=== PATIENT | male | born 1965 | race Two or more races ===

== ENCOUNTER 2021-11-28 02:42 | Inpatient (IN) | payer OTHER ==
[~2021-11-28] VITALS: Ht 182.9 cm; Wt 70.8 kg
[2021-11-28] VITALS (13 sets, daily range): BP systolic 104–148; BP diastolic 60–79
--- NOTE | 2021-11-28 02:50 | NUR ---
Seen and examined by ED Dr. Remy.
--- NOTE | 2021-11-28 02:53 | NUR ---
pt bib ra for c/o sob x one hour.
[2021-11-28] MEDS ORDERED: VANCOMYCIN 1G/D5W 200 ML PIGGYBACK IV ONE (03:00)
[2021-11-28] MEDS ORDERED: PIPERACILLIN SODIUM/TAZOBACTAM 3.375 G in IV DEXTROSE 5% 50 ML IV ONE (03:00)
[2021-11-28] MEDS ORDERED: AZITHROMYCIN IV 500 MG in IV DEXTROSE 5% 250 ML IV ONE (03:00)
--- NOTE | 2021-11-28 03:00 | NUR ---
Breathing treatment given c/o RT. Addendum: 11/28/21 at 0407 by RACHID Wrong time.
--- NOTE | 2021-11-28 03:02 | NUR ---
Dr. Remy and respiratory in room pt is placed on bipap. 07/04 rate 16 100 fio2.
[2021-11-28] MEDS ORDERED: IPRATROPIUM BROMIDE 0.5 MG/2.5 ML NEBU ONE ×4 (03:07→19:27)
[2021-11-28] MEDS ORDERED: ALBUTEROL SULFATE 2.5 MG/3 ML NEBU ONE ×6 (03:07→19:27)
[2021-11-28] MEDS ORDERED: PIPERACILLIN/TAZOBACTAM/D5W 50 ML IV ONE (03:17)
[2021-11-28] MEDS ORDERED: VANCOMYCIN IV 200 ML ONE (03:17)
[2021-11-28] MEDS ORDERED: AZITHROMYCIN 500 MG VIAL IV ONE (03:18)
[2021-11-28 03:43] LABS: CARBON DIOXIDE 23 mmol/L (21-32); CHLORIDE 106 mmol/L (98-107); CREATININE 3.8 mg/dL (0.6-1.3); GLUCOSE 93 mg/dL (74-106); PLATELET COUNT (AUTO) 77 K/uL (152-348); POTASSIUM 5.7 mmol/L (3.5-5.1); UREA NITROGEN, BLOOD 59 mg/dL (7-18)
[2021-11-28 03:55] LABS: HEMATOCRIT 36.3 % (36.7-47.1); MEAN CORPUSCULAR HEMOGLOBIN 29.1 uug (23.8-33.4); MEAN CORPUSCULAR VOLUME 92.4 fL (73.0-96.2)
[2021-11-28 03:59] LABS: ALANINE AMINOTRANSFERASE 18 U/L (16-63); ALKALINE PHOSPHATASE 47 U/L (50-136); ASPARTATE AMINOTRANSFERASE 20 U/L (15-37); BILIRUBIN,DIRECT 0.2 mg/dL (0.0-0.2); BILIRUBIN,TOTAL 0.5 mg/dL (0.2-1.0); TOTAL PROTEIN, SERUM 6.2 g/dL (6.4-8.2)
[2021-11-28] MEDS ORDERED: IPRATROPIUM BROMIDE 0.5 MG/2.5 ML NEBU NEB ONE (04:00)
[2021-11-28] MEDS ORDERED: ALBUTEROL SULFATE 2.5 MG/3 ML NEBU NEB ONE ×4 (04:00→05:15)
--- NOTE | 2021-11-28 04:00 | NUR ---
Covid swab done and sent to lab.
--- NOTE | 2021-11-28 04:06 | NUR ---
Aidan done c/o radiology nurse.
[2021-11-28] MEDS ORDERED: DEXTROSE 50% 50 ML DISP.SYRIN IV ONE ×2 (04:30→06:15)
[2021-11-28] MEDS ORDERED: INSULIN REGULAR, HUMAN 300 UNIT/3 ML VIAL IV ONE (04:30)
[2021-11-28] MEDS ORDERED: SODIUM POLYSTYRENE SULFONATE 15 G/60 ML LIQUID UDC PO ONE (04:30)
--- NOTE | 2021-11-28 05:01 | NUR ---
Paged EPIC panel for admission. Awaiting for callback.
[2021-11-28] MEDS ORDERED: LEVE500T20 PO (05:04)
[2021-11-28] MEDS ORDERED: ESCI20TA44 PO (05:04)
[2021-11-28] MEDS ORDERED: SENN1TAB33 PO (05:04)
[2021-11-28] MEDS ORDERED: AMLO10TA59 PO (05:04)
[2021-11-28] MEDS ORDERED: QUET25TA PO (05:04)
[2021-11-28] MEDS ORDERED: FOLI1TAB94 PO (05:04)
[2021-11-28] MEDS ORDERED: ACET-2154 PO (05:04)
[2021-11-28] MEDS ORDERED: FINA5TAB11 PO (05:04)
[2021-11-28] MEDS ORDERED: HYDR200T4 PO (05:04)
[2021-11-28] MEDS ORDERED: SEVE800T8 PO (05:04)
[2021-11-28] MEDS ORDERED: ACET-2154 RC (05:04)
[2021-11-28] MEDS ORDERED: PANT40TA49 PO (05:04)
[2021-11-28] MEDS ORDERED: TAMS-3 PO (05:04)
[2021-11-28] MEDS ORDERED: GABA-532 PO (05:04)
[2021-11-28] MEDS ORDERED: CALC1TAB30 PO (05:04)
[2021-11-28] MEDS ORDERED: FENO54TA PO (05:04)
[2021-11-28] MEDS ORDERED: CARV6.252 PO (05:04)
[2021-11-28] MEDS ORDERED: HYDR-4077 PO (05:04)
[2021-11-28] MEDS ORDERED: OMEG1CAP40 PO (05:04)
[2021-11-28] MEDS ORDERED: PRED20TA PO (05:04)
[2021-11-28] MEDS ORDERED: LEVO25TA9 PO (05:04)
[2021-11-28] MEDS ORDERED: CEFT1VIA15 IM (05:04)
[2021-11-28] MEDS ORDERED: LORA-258 PO (05:04)
[2021-11-28] MEDS ORDERED: ATOR80TA PO (05:04)
--- NOTE | 2021-11-28 05:04 | NUR ---
Dr. Remy on panel call with Justina Pink NP.
[2021-11-28] MEDS ORDERED: ACETAMINOPHEN 325 MG TABLET-SA PATIENTS-PAIN ONLY PO PRN ×2 (05:15)
[2021-11-28] MEDS ORDERED: ONDANSETRON 4 MG/2 ML VIAL IV PRN (05:15)
[2021-11-28] MEDS ORDERED: hydrALAZINE HCL 50 MG TABLET PO PRN (05:15)
[2021-11-28] MEDS ORDERED: ALBUTEROL SULFATE 2.5 MG/3 ML NEBU NEB PRN (05:15)
[2021-11-28] MEDS ORDERED: REMEDY ESSENTIAL ZINC PASTE 113 GM TP PRN (05:15)
[2021-11-28] MEDS ORDERED: LORAZEPAM 0.5 MG TABLET PO PRN (05:15)
[2021-11-28] MEDS ORDERED: MAGNESIUM HYDROXIDE 30 ML LIQUID UDC PO PRN (05:15)
[2021-11-28] MEDS ORDERED: IPRATROPIUM BROMIDE 0.5 MG/2.5 ML NEBU NEB PRN (05:15)
--- NOTE | 2021-11-28 05:22 | NUR ---
Influenza and MRSA swab done and sent to lab.
[2021-11-28] MEDS ORDERED: SODIUM POLYSTYRENE SULFONATE 15 G/60 ML LIQUID UDC ONE (05:34)
[2021-11-28] MEDS ORDERED: DEXTROSE 50% 50 ML DISP.SYRIN ONE ×2 (05:34→05:56)
[2021-11-28] MEDS ORDERED: INSULIN REGULAR, HUMAN 300 UNIT/3 ML VIAL ONE (05:35)
[2021-11-28] MEDS ORDERED: SODIUM BICARBONATE 8.4% 50 MEQ/50 ML DISP.SYRIN IV ONE ×2 (06:00→06:14)
[2021-11-28] MEDS ORDERED: PIPERACILLIN SODIUM/TAZOBACTAM 3.375 G in IV DEXTROSE 5% 50 ML IV SCH (06:00)
--- NOTE | 2021-11-28 06:11 | NUR ---
BS 59. Dr Remy made aware. Per Dr. Remy, to order another dextrose 50% once. Noted and carried out.
[2021-11-28] MEDS ORDERED: methylPREDNISolone SOD SUCC 40 MG/ML VIAL ONE ×3 (06:14→18:56)
[2021-11-28] MEDS ORDERED: PANTOPRAZOLE SODIUM 40 MG TABLET.DR PO ONE (06:14)
[2021-11-28] MEDS: methylPREDNISolone SOD SUCC 40 MG/ML VIAL IV SCH ×4 (06:16→23:57)
[2021-11-28] MEDS: PANTOPRAZOLE SODIUM 40 MG TABLET.DR PO SCH (06:23)
--- NOTE | 2021-11-28 06:35 | NUR ---
BS rechecked 83. Will continue to monitor closely.
[2021-11-28 06:59] LABS: ABG BASE EXCESS -3.1 mmol/L; ABG HCO3 21.6 mmol/L; ABG PCO2 37.4 mmHg (35.0-45.0); ABG PH 7.379 (7.350-7.450); ABG PO2 58.2 mmHg (75.0-100.0); ABG SITE LEFT RADIAL; ABG TOTAL HEMOGLOBIN 11.1 G/dL (13.5-18.0); COHb 0.7 % (0.5-1.5); MetHb 0.1 % (0.0-1.5); VENT MODE BIPAP
--- NOTE | 2021-11-28 07:15 | NUR ---
Pt was taken care of by CCU RN, Pablo, no report given to me. I assissted pt transfer to CCU bed.
[2021-11-28] MEDS ORDERED: LEVOTHYROXINE SODIUM 25 MCG TABLET PO SCH (08:00)
[2021-11-28] MEDS ORDERED: ACETAMINOPHEN 325 MG SUPP ONE (08:27)
[2021-11-28] MEDS ORDERED: ACETAMINOPHEN 650 MG SUPP.RECT RC PRN (08:30)
[2021-11-28] MEDS: FOLIC ACID 1 MG TABLET PO SCH (09:00)
[2021-11-28] MEDS: AMLODIPINE 10 MG TABLET PO SCH ×2 (09:00→13:42)
[2021-11-28] MEDS ORDERED: TAMSULOSIN HCL 0.4 MG CAP.SR.24H PO SCH (09:00)
[2021-11-28] MEDS ORDERED: FENOFIBRATE 67 MG PO SCH (09:00)
[2021-11-28] MEDS ORDERED: levETIRAcetam 500 MG TABLET PO SCH (09:00)
[2021-11-28] MEDS ORDERED: LEVOTHYROXINE SODIUM 100 MCG VIAL IV SCH (10:00)
[2021-11-28] MEDS: IPRATROPIUM BROMIDE 0.5 MG/2.5 ML NEBU NEB SCH ×4 (11:16→23:24)
[2021-11-28] MEDS: ALBUTEROL SULFATE 2.5 MG/3 ML NEBU NEB SCH ×4 (11:16→23:24)
[2021-11-28] MEDS: levETIRAcetam IV 500 MG in IV DEXTROSE 5% 100 ML IV SCH (12:57)
--- NOTE | 2021-11-28 13:00 | NUR ---
Bedside nursing swallow conducted and patient does not have any swallowing issues at this time.
[2021-11-28] MEDS ORDERED: ESCITALOPRAM OXALATE 10 MG TABLET ONE (13:03)
[2021-11-28] MEDS ORDERED: FOLIC ACID 1 MG TABLET ONE (13:03)
[2021-11-28] MEDS ORDERED: GABAPENTIN 100 MG CAPSULE ONE ×2 (13:03→17:37)
[2021-11-28] MEDS ORDERED: LEVOTHYROXINE SODIUM 100 MCG VIAL IV ONE (13:03)
[2021-11-28] MEDS ORDERED: CARVEDILOL 6.25 MG TABLET ONE ×2 (13:04→17:37)
[2021-11-28] MEDS ORDERED: AMLODIPINE 5 MG TABLET ONE (13:04)
[2021-11-28] MEDS ORDERED: CALCIUM CARBONATE 500 MG TAB.CHEW ONE (13:04)
[2021-11-28] MEDS ORDERED: TAMSULOSIN HCL 0.4 MG CAP.SR.24H ONE (13:04)
[2021-11-28] MEDS ORDERED: FINASTERIDE 5 MG TABLET ONE (13:04)
[2021-11-28] MEDS: GABAPENTIN 100 MG CAPSULE PO SCH ×2 (13:28→17:40)
[2021-11-28] MEDS: FINASTERIDE 5 MG TABLET PO SCH (13:29)
[2021-11-28] MEDS: CARVEDILOL 6.25 MG TABLET PO SCH ×2 (13:29→17:40)
[2021-11-28] MEDS: ESCITALOPRAM OXALATE 10 MG TABLET PO SCH (13:29)
[2021-11-28] MEDS: OMEGA-3 FATTY ACIDS/FISH OIL CAPSULE PO SCH ×2 (13:42→17:41)
[2021-11-28] MEDS: HYDROXYCHLOROQUINE SULFATE 200 MG TABLET PO SCH (13:43)
[2021-11-28] MEDS: SENNOSIDES/DOCUSATE SODIUM TABLET PO SCH ×2 (13:43→17:40)
[2021-11-28] MEDS: SEVELAMER CARBONATE 800 MG TABLET PO SCH ×2 (13:43→17:40)
[2021-11-28] MEDS: CALCIUM CARB/VITAMIN D 500MG-200UNITS TABLET PO SCH (13:44)
[2021-11-28] MEDS ORDERED: MIDODRINE HCL 5 MG TABLET ONE (14:30)
[2021-11-28] MEDS: PIPERACILLIN/TAZO 2.25 G in IV DEXTROSE 5% 50 ML IV SCH ×2 (14:32→21:01)
--- NOTE | 2021-11-28 19:05 | NUR ---
Patient tolerated dialysis fine today with 2L fluid removal. Patient was taken off Bipap and tried on 2 L nasal cannula and was at a saturation of 100% for the remainder of the shift since 1pm. Patient tolerating diet without nausea or vomiting. No sputum collected as patient is no longer coughing. Fever has resolved without additional intervention and Dr. Tracy and Dr. Bond contacted for downgrade to [facility]. Patients will be transferred to floor.
[2021-11-28 19:57] LABS: NEUTROPHILS % (MANUAL) 0 % (42-75)
--- NOTE | 2021-11-28 20:10 | NUR ---
Transferred patient from transition to room 324. Patient AAOx2 with confusion. In no apparent distress. On O2 at 2LPM via NC in place. O2 sat at 93%. HOB kept elevated. IV site on left hand intact and patent. Right subclavian perma cath with dressing dry and intact. Isolation precaution observed. Safety measure initiated and call light within reached.
[2021-11-28] MEDS: ATORVASTATIN 40 MG TABLET PO SCH (20:49)
[2021-11-28] MEDS: QUETIAPINE FUMARATE 25 MG TABLET PO SCH (20:49)
[2021-11-29] VITALS (7 sets, daily range): BP systolic 102–127; BP diastolic 56–79
[2021-11-29] MEDS: levETIRAcetam IV 500 MG in IV DEXTROSE 5% 100 ML IV SCH (01:05)
[2021-11-29] MEDS: ALBUTEROL SULFATE 2.5 MG/3 ML NEBU NEB SCH ×5 (03:20→21:28)
[2021-11-29] MEDS: IPRATROPIUM BROMIDE 0.5 MG/2.5 ML NEBU NEB SCH ×5 (03:21→21:28)
[2021-11-29] MEDS: methylPREDNISolone SOD SUCC 40 MG/ML VIAL IV SCH ×3 (05:07→17:26)
[2021-11-29] MEDS: PIPERACILLIN/TAZO 2.25 G in IV DEXTROSE 5% 50 ML IV SCH ×2 (05:07→14:37)
[2021-11-29] MEDS ORDERED: VANCOMYCIN IV 500 MG in IV DEXTROSE 5% 100 ML IV PRN (05:45)
[2021-11-29] MEDS: PANTOPRAZOLE SODIUM 40 MG TABLET.DR PO SCH (06:05)
--- NOTE | 2021-11-29 06:20 | NUR ---
Patient slept well last night. In no acute distress. NSR on tele with HR of 78/min. No coughing or SOB complained. O2 at 2LPM via NC in place. O2 sat at 95% this AM. No adverse reaction noted from IV antibiotics. No seizure episode. Needs assessed and attended to. Isolation precaution maintained. Safety measure maintained and call light within reached.
[2021-11-29 06:25] LABS: HEMATOCRIT 29.7 % (36.7-47.1); MEAN CORPUSCULAR HEMOGLOBIN 29.9 uug (23.8-33.4); MEAN CORPUSCULAR VOLUME 90.2 fL (73.0-96.2); PLATELET COUNT (AUTO) 74 K/uL (152-348)
[2021-11-29 06:50] LABS: CREATININE 3.5 mg/dL (0.6-1.3); MAGNESIUM 2.1 mg/dL (1.8-2.4); PHOSPHOROUS 4.4 mg/dL (2.5-4.9); POTASSIUM 5.2 mmol/L (3.5-5.1); VANCOMYCIN,RANDOM 9.9 ug/mL (18.0-26.0)
[2021-11-29] MEDS ORDERED: LEVOTHYROXINE SODIUM 25 MCG TABLET PO SCH (07:00)
[2021-11-29] MEDS: FINASTERIDE 5 MG TABLET PO SCH (08:56)
[2021-11-29] MEDS: SEVELAMER CARBONATE 800 MG TABLET PO SCH ×2 (08:56→17:26)
[2021-11-29] MEDS: ESCITALOPRAM OXALATE 10 MG TABLET PO SCH (08:57)
[2021-11-29] MEDS: CARVEDILOL 6.25 MG TABLET PO SCH ×2 (08:58→17:41)
[2021-11-29] MEDS: CALCIUM CARB/VITAMIN D 500MG-200UNITS TABLET PO SCH (08:58)
[2021-11-29] MEDS: FOLIC ACID 1 MG TABLET PO SCH (08:59)
[2021-11-29] MEDS: OMEGA-3 FATTY ACIDS/FISH OIL CAPSULE PO SCH ×2 (08:59→17:26)
[2021-11-29] MEDS ORDERED: AMLODIPINE 10 MG TABLET PO SCH (09:00)
[2021-11-29] MEDS ORDERED: AMLODIPINE 5 MG TABLET PO SCH (09:00)
[2021-11-29] MEDS: SENNOSIDES/DOCUSATE SODIUM TABLET PO SCH ×2 (09:03→17:26)
[2021-11-29] MEDS: GABAPENTIN 100 MG CAPSULE PO SCH ×2 (09:03→17:26)
--- NOTE | 2021-11-29 09:30 | NUR ---
HEMODIALYSIS STARTED AT BEDSIDE, CLOSELY MONITORED.
[2021-11-29] MEDS: HYDROXYCHLOROQUINE SULFATE 200 MG TABLET PO SCH (10:16)
--- NOTE | 2021-11-29 11:08 | NUR ---
WOUND CARE CONSULT: PT NOT TURNED FOR SKIN ASSESSMENT DUE TO HAVING HEMODIALYSIS AT THIS TIME. REVIEWED CHART, NURSING DOCUMENTATION AND ADMISSION PHOTO WHICH INDICATES FULL THICKNESS SACRAL WOUND WITH SURROUNDING SCARRING, PRESENT ON ADMISSION. RECOMMENDATIONS MADE FOR SKIN PROTECTION AND WOUND CARE. DISCUSSED WITH NURSING STAFF. MD IN AGREEMENT WITH PLAN OF CARE.
[2021-11-29] MEDS: levETIRAcetam 500 MG TABLET PO SCH ×2 (11:43→20:25)
--- NOTE | 2021-11-29 12:30 | NUR ---
PER COMPLETIONS MANAGER AWAITING BED AVAILABILITY FROM [facility]
[2021-11-29 12:35] LABS: ABG BASE EXCESS -1.6 mmol/L; ABG HCO3 22.4 mmol/L; ABG PCO2 34.7 mmHg (35.0-45.0); ABG PH 7.427 (7.350-7.450); ABG PO2 69.6 mmHg (75.0-100.0); ABG SITE LEFT RADIAL; COHb 0.7 % (0.5-1.5); MetHb 0.3 % (0.0-1.5); VENT MODE Nasal Cannula
--- NOTE | 2021-11-29 12:35 | NUR ---
DIALYSIS COMPLETED REMOVED 1.5L OF FLUID
[2021-11-29] MEDS ORDERED: VANCOMYCIN IV 1,000 MG in IV DEXTROSE 5% 250 ML IV ONE (13:30)
[2021-11-29] MEDS ORDERED: ALBU2.5V7 NEB ×2 (13:53)
[2021-11-29] MEDS ORDERED: methylPREDNISolone SOD SUCC IV (13:53)
[2021-11-29] MEDS ORDERED: CARV6.252 PO (13:53)
[2021-11-29] MEDS ORDERED: RXVAN XX (13:53)
[2021-11-29] MEDS ORDERED: TAMS-3 PO (13:53)
[2021-11-29] MEDS ORDERED: IPRA0.2S6 NEB ×2 (13:53)
[2021-11-29] MEDS ORDERED: ONDA4VIA23 IV (13:53)
[2021-11-29] MEDS ORDERED: SEVE800T7 PO (13:53)
[2021-11-29] MEDS ORDERED: PIPE3.379 IV (13:53)
[2021-11-29] MEDS ORDERED: ACET650S13 RC (13:53)
[2021-11-29] MEDS ORDERED: AMLO10TA59 PO (13:53)
[2021-11-29] MEDS ORDERED: LEVE500T9 PO (13:53)
--- NOTE | 2021-11-29 14:00 | NUR ---
KAREN BY Isidra CHENG FOR FOLLOW-UP PLAN DC TO [facility] WHEN BED I AVAILABLE
--- NOTE | 2021-11-29 16:29 | NUR ---
RECEIVED A CALL FROM [facility] PATIENT IS POSITIVE TO MRSA NARES. HOSPITALIST MADE AWARE
--- NOTE | 2021-11-29 18:00 | NUR ---
AWAITING BED AVAILABILITY FROM [facility], PATENT REFUSED PICTURE TAKING ENDORSED TO FURNITURE INSPECTOR
[2021-11-29] MEDS: ATORVASTATIN 40 MG TABLET PO SCH (20:25)
[2021-11-29] MEDS: QUETIAPINE FUMARATE 25 MG TABLET PO SCH (20:25)
--- NOTE | 2021-11-29 20:25 | NUR ---
PATIENT IN BED AWAKE ,ABLE TO ANSWER SIMPLE QUESTIONS.NO RESPIRATORY DISTRESS NOTED BREATHING EVEN AND UNLABORED ON 02 NASAL CANNULA AT 2 LITERS/MIN . DUE MEDICATION GIVEN ONE AT A TIME PATIENT TOLERATED PO MEDICATION WITH WATER . RIGHT UPPER CHEST PERMA CATHETER IN PLACED AND RIGHT HEPLOCK IN PLACED NO. 20 CDI. CALL LIGHT PLACED WITH IN REACH AND ADVISED PATIENT TO CALL FOR HELP .
[2021-11-29] MEDS ORDERED: TAMSULOSIN HCL 0.4 MG CAP.SR.24H PO SCH (21:00)
--- NOTE | 2021-11-29 21:32 | NUR ---
REPORT GIVEN TO [facility] ,USING SBAR PATIENT IN GOING TO [facility] .
--- NOTE | 2021-11-29 21:45 | NUR ---
REPORT GIVEN TO RN IN [facility] SPOKED WITH BETH TEL no.[phone].PATIENT DX:SEPSIS AND PUI PATIENT IS GOING TO ROOM 5527 .
== END 2021-11-29 21:50 | disposition short-term general hospital (02) | DRG 720 ==
LOC: ER 02:47 → TRANSITION 07:50 → TELE-TD3 20:25
PROVIDERS: ADMIT Family Medicine; ATTEND Registered Nurse
PROC: 5A1D70Z Performance of Urinary Filtration, Intermittent, Less than 6 Hours Per Day (ICD-10-PCS; principal; 2021-11-28)
PROC: 5A09357 Assistance with Respiratory Ventilation, Less than 24 Consecutive Hours, Continuous Positive Airway Pressure (ICD-10-PCS; principal; 2021-11-28)
DX: A41.9 Sepsis, unspecified organism (principal); J96.21 Acute and chronic respiratory failure with hypoxia; J69.0 Pneumonitis due to inhalation of food and vomit; E43 Unspecified severe protein-calorie malnutrition; D69.6 Thrombocytopenia, unspecified; I13.2 Hypertensive heart and chronic kidney disease with heart failure and with stage 5 chronic kidney disease, or end stage renal disease; D63.8 Anemia in other chronic diseases classified elsewhere; E88.09 Other disorders of plasma-protein metabolism, not elsewhere classified; M32.14 Glomerular disease in systemic lupus erythematosus; N18.6 End stage renal disease; I69.351 Hemiplegia and hemiparesis following cerebral infarction affecting right dominant side; Z99.2 Dependence on renal dialysis; E03.9 Hypothyroidism, unspecified; E78.5 Hyperlipidemia, unspecified; E87.5 Hyperkalemia; G40.909 Epilepsy, unspecified, not intractable, without status epilepticus; K21.9 Gastro-esophageal reflux disease without esophagitis; Z86.16 Personal history of COVID-19; Z87.01 Personal history of pneumonia (recurrent); Z90.81 Acquired absence of spleen; E44.0 Moderate protein-calorie malnutrition; J44.0 Chronic obstructive pulmonary disease with (acute) lower respiratory infection; I50.9 Heart failure, unspecified; F32.A Depression, unspecified; N40.0 Benign prostatic hyperplasia without lower urinary tract symptoms; Z79.899 Other long term (current) drug therapy; Z20.822 Contact with and (suspected) exposure to COVID-19; I34.0 Nonrheumatic mitral (valve) insufficiency; Z68.21 Body mass index [BMI] 21.0-21.9, adult
CPT/HCPCS: 36415; 36600; 70030-TC; 71045; 83605; 83735; 84100; 84484; 85025; 85730; 87040; 87400; 93005; 93307; 94640; 94660; A4663; A6213; G0378; J0456; J1815; J1953; J2543; J2920; J3370; J3490; J3590; J7040; J7050; U0003